=== PATIENT | female | born 1955 | race Caucasian/White ===

== ENCOUNTER → 2018-07-27 | Outpatient (CLI) | payer OTHER ==
[~2018-07-27] MED LIST: ATOR10TA24 PO
== END ==
LOC: LAB 08:30
PROVIDERS: ATTEND Family Medicine
DX: R79.0 Abnormal level of blood mineral (principal); R79.89 Other specified abnormal findings of blood chemistry; R94.5 Abnormal results of liver function studies
CPT/HCPCS: 36415; 81256